=== PATIENT | male | born 2005 | race Hispanic/Latino ===

== ENCOUNTER 2025-02-17 19:31 | Emergency (ER) | payer OTHER ==
[~2025-02-17] VITALS: Ht 180.3 cm; Wt 75.7 kg
[2025-02-17 20:36] LABS: APPEARANCE,URINE CLEAR (CLEAR); BILIRUBIN,URINE SMALL mg/dL (NEGATIVE); COLOR,URINE YELLOW (YELLOW); GLUCOSE, URINE (UA) NEGATIVE (NEGATIVE); KETONES,URINE 40 mg/dL (NEGATIVE); LEUKOCYTE ESTERASE ,URINE NEGATIVE Leu/uL (NEGATIVE); NITRATE,URINE NEGATIVE (NEGATIVE); OCCULT BLOOD,URINE NEGATIVE (NEGATIVE); PROTEIN,URINE TRACE mg/dL (NEGATIVE)
--- NOTE | 2025-02-17 20:41 | ERN ---
ED Note History of Present Illness Stated Complaint: C/O LOWER ABD PAIN W/ RT TESTICULAR PAIN Chief Complaint: Testicular Injury/Pain Time Seen by MD: 19:36 Time Seen by Midlevel: 19:36 Dictation: [age] year old male coming in with complaints of right testicular pain and swelling onset yesterday. Patient states he was working outside pulling weeds went inside to take a nap when he woke up he felt pain. Patient states today he took Tylenol if helped with the pain and help with the swelling. Denies any hematuria or dysuria. No concern for STDs. Denies having any medical history or surgical history. Allergies: Coded Allergies: No Known Allergies (Unverified Allergy, Unknown, 02/17/25) Home Meds Active Scripts Doxycycline Hyclate (Doxycycline Hyclate) 100 Mg Capsule, 1 CAP PO BID for 10 Days, #20 CAP 0 Refills Prov:DARIO FOLEY NP 02/17/25 Past Medical History Past Medical History: No Pertinent History Surgical History: None Review of System Dictation Constitutional: Negative for fever,chills, and weight loss Eyes: Negative for injury, pain,redness, and discharge ENT: Negative for injury,pain or swelling Cardiovascular: Negative for chest pain, palpitations, and edema Respiratory: Negative for shortness of breath, cough, and wheezing, Abdomen/GI: Negative for abdominal pain, nausea, vomiting, diarrhea, and constipation Back: Negative for injury and pain : Negative for injury, bleeding and discharge, complaining of right testicular pain and swelling MS/Extremity: Negative for injury and deformity Skin: Negative for rash, and discoloration Neuro: Negative for headache, weakness, numbness, tingling, and seizure Psych: Negative for suicide ideation, homicidal ideation, and hallucinations Review of Systems: was completed Initial Vital Sign VS Vital Signs Date Time Temp Pulse Resp B/P (MAP) Pulse Ox O2 Delivery O2 Flow Rate FiO2 02/17/25 19:34 98.1 82 18 109/65 98 Room Air Physical Exam Dictation General: awake, alert, NAD Head/Face: Normocephalic, atraumatic Eyes: PERRL, EOMI, vision at baseline ENT: oral cavity clear, TMs clear, no signs of infection Neck: Trachea midline, supple, no nuchal rigidity Cardiovascular: RRR, normal S1/S2, No MRGs, no JVD Respiratory: CTAB, no respiratory distress, No rales or wheezes Abdomen: Soft, non-tender, non-distended, normal bowel sounds, no guarding or rebound. Skin: Warm, dry, normal turgor, no rash MS/Extremity: Pulses equal, no cyanosis, neurovascular intact, FROM Neuro: COAx4, GCS 15, strength 5/5, CN 2-12 intact, normal cerebellar exam, normal gait, Psych: Normal behavior, mood, and affect normal : No penile discharge, no testicular swelling, cremasteric reflex intact. No red in the swelling or induration. No inguinal lymphadenopathy Results (Laboratory/Radiology) Laboratory/Radiology Laboratory Tests Test 02/17/25 19:42 Urine Color YELLOW (YELLOW) Urine Appearance CLEAR (CLEAR) Urine pH 6.0 (5.0-8.0) Urine Specific [place] 1.025 (1.001-1.031) Urine Protein TRACE mg/dL (NEGATIVE) H Urine Glucose (UA) NEGATIVE mg/dL (NEGATIVE) Urine Ketones 40 mg/dL (NEGATIVE) H Urine Occult Blood NEGATIVE (NEGATIVE) Urine Nitrate NEGATIVE (NEGATIVE) Urine Bilirubin SMALL mg/dL (NEGATIVE) H Urine Urobilinogen 1.0 mg/dL (0.2-1.0) Urine Leukocyte Esterase NEGATIVE Neema/uL Urine RBC 2-5 /HPF (0-1) H Urine WBC 2-5 /HPF (0-1) H Urine Bacteria RARE /HPF (None Seen) Labs Reviewed?: Yes ED Course ED Course Orders Procedure Category Date Status Time Urinalysis Profile LAB 02/17/25 Complete 19:41 Us Scrotum & Contents US 02/17/25 Resulted 19:41 Ceftriaxone 1g Vial PHA 02/17/25 Complete (Rocephine 1g Inj) 20:56 Current Medications Medications (Trade) Dose Ordered Sig/Jessica Route PRN Reason Start Time Stop Time Status Last Admin Dose Admin Ceftriaxone Sodium (ROCEphine 1G INJ) 1 gm ONCE STAT IVPB 02/17/25 20:56 02/17/25 20:58 DC Vital Signs Date Time Temp Pulse Resp B/P (MAP) Pulse Ox O2 Delivery O2 Flow Rate FiO2 02/17/25 19:34 98.1 82 18 109/65 98 Room Air Medical Decision Making MDM MDM: [age] year old male coming in with complaints of right testicular pain and swelling onset yesterday. Patient states he was working outside pulling weeds went inside to take a nap when he woke up he felt pain. Denies any recent illness. Patient states today he took Tylenol if helped with the pain and help with the swelling. Denies any hematuria or dysuria. No concern for STDs. Denies having any medical history or surgical history. Differential diagnosis: Testicular torsion, epididymitis, urinary tract infection, hernia Rationale: Tests considered and ordered secondary to shared decision making include: Previous outside records reviewed: Old ER visits. Risk of complication and/or morbidity or mortality of patient management: None Medications-Per medication reconciliation Need for hospitalization: Patient does not meet criteria for hospitalization. Need for emergency major/minor surgery: No There are no social concerns with this patient. Prescription drug management Prescriptions will include symptomatic care Patient's prior external medical records from other ER visits were reviewed by me as indicated. Prior testing and results from previous visits were reviewed. Prior tests were taken into account with medical decision making and resource utilization, independent historian/historians were used to obtain complete medical history. I independently interpreted the test that were performed, results were reviewed by me and considered findings on radiology if ordered. Medical management and examination interpretation discussions were had by me with other qualified healthcare professionals as indicated for the patient's care. DX & DISP Disposition: Discharge Departure Impression: Primary Impression: Orchitis Condition: Stable Scripts Doxycycline Hyclate (Doxycycline Hyclate) 100 Mg Capsule 1 CAP PO BID for 10 Days, #20 CAP 0 Refills Prov: DARIO FOLEY NP 02/17/25 Additional Instructions: Continue taking Tylenol or Motrin to help with pain control. You have any wors ening symptoms like burning sensation when urinating, blood in your urine, fevers, nausea and vomiting return back to the emergency room, otherwise follow up with your primary doctor and with a urologist. Referrals: VALERIE RODRIGUEZ (PCP) PORFIRIO LARSON MD Time of Disposition: 21:03 I have reviewed the case, and I agree with, Diagnosis and Plan DARIO FOLEY NP Feb 17, 2025 20:41
[2025-02-17 20:42] LABS: ADD UA MICROSCOPIC YES
[2025-02-17 20:44] LABS: BACTERIA,URINE RARE /HPF (None Seen); MUCUS,URINE RARE LPF (None Seen)
--- NOTE | 2025-02-17 20:50 | HMCIMG ---
US SCROTUM & CONTENTS HISTORY: Right testicular pain COMPARISON: None TECHNIQUE: Duplex scrotal ultrasound study was performed. FINDINGS: The right testes measures 4.5 x 2.6 x 2.4 cm. The left testes measures 3.9 x 2.7 x 2.4 cm. No evidence of intratesticular mass or abnormal calcification is seen. Increased flow is seen of the testes bilaterally with right more than left may be related to orchitis. No hydroceles or varicocele is seen. IMPRESSION: 1. Increased flow is seen of the testes bilaterally with right more than left may be related to orchitis.
[2025-02-17] MEDS ORDERED: DOXY100C5 PO (21:02)
[2025-02-17] MEDS: cefTRIAXone 1G VIAL IVPB STA (21:13)
[2025-02-17 21:20] VITALS: BP 142/86; PULSE 84; RESP 18; TEMP 98.4; O2SAT 98
== END 2025-02-17 21:23 | disposition home or self-care (01) ==
LOC: EDH 19:31
DX: N45.2 Orchitis (principal); Z79.899 Other long term (current) drug therapy
CPT/HCPCS: 99285; 96374; 81001; 76870; J0696